=== PATIENT | female | born 1945 | race Two or more races ===

== ENCOUNTER 2017-12-22 07:57 | Outpatient (CLI) | payer OTHER ==
[~2017-12-22 07:57] MED LIST: BONIVA2.5 MG PO; SYNTHROID50 MCG PO
== END 2017-12-22 08:10 | disposition home or self-care (01) ==
LOC: LAB 07:57
DX: E11.9 Type 2 diabetes mellitus without complications (principal); E78.2 Mixed hyperlipidemia; N18.9 Chronic kidney disease, unspecified; E55.9 Vitamin D deficiency, unspecified; E21.0 Primary hyperparathyroidism; E03.8 Other specified hypothyroidism

== ENCOUNTER 2018-07-03 10:15 | Outpatient (CLI) | payer OTHER | END 2018-07-03 10:20 | disposition home or self-care (01) | LOC: LAB 10:15 | DX: E03.8 Other specified hypothyroidism (principal) ==

== ENCOUNTER 2018-07-04 11:09 | Outpatient (CLI) | payer OTHER | END 2018-07-04 11:12 | disposition home or self-care (01) | LOC: MAMO-SONO 11:09 | DX: Z12.31 Encounter for screening mammogram for malignant neoplasm of breast (principal); Z87.898 Personal history of other specified conditions; N64.89 Other specified disorders of breast ==

== ENCOUNTER 2019-01-09 09:06 | Outpatient (CLI) | payer OTHER | END 2019-01-09 09:14 | disposition home or self-care (01) | LOC: LAB 09:06 | DX: K62.5 Hemorrhage of anus and rectum (principal); E78.2 Mixed hyperlipidemia; E11.9 Type 2 diabetes mellitus without complications; E55.9 Vitamin D deficiency, unspecified; E03.8 Other specified hypothyroidism; N18.9 Chronic kidney disease, unspecified ==

== ENCOUNTER → 2019-01-09 | Outpatient (CLI) | payer OTHER | END | disposition home or self-care (01) | LOC: SONOGRAMA 14:13 → MAMO-SONO 14:15 | DX: E03.8 Other specified hypothyroidism (principal); E04.2 Nontoxic multinodular goiter ==

== ENCOUNTER 2019-02-08 10:54 | Emergency (ER) | payer OTHER ==
[~2019-02-08] VITALS: Ht 170.2 cm; Wt 68.0 kg
== END 2019-02-08 18:32 | disposition home or self-care (01) ==
LOC: ER 10:54
DX: K52.89 Other specified noninfective gastroenteritis and colitis (principal); K59.09 Other constipation

== ENCOUNTER 2019-02-11 09:30 | Emergency (ER) | payer OTHER ==
[~2019-02-11] VITALS: Ht 170.2 cm; Wt 65.8 kg
== END 2019-02-11 14:09 | disposition home or self-care (01) ==
LOC: ER 09:30
DX: K52.89 Other specified noninfective gastroenteritis and colitis (principal)

== ENCOUNTER 2019-09-22 13:06 | Outpatient (CLI) | payer OTHER | END 2019-09-22 13:13 | disposition home or self-care (01) | LOC: RAD 13:06 | DX: R05 Cough (principal) ==

== ENCOUNTER 2021-02-12 10:36 | Outpatient (CLI) | payer OTHER | END 2021-02-12 10:56 | disposition home or self-care (01) | LOC: MAMO-SONO 10:36 | PROVIDERS: ATTEND Obstetrics & Gynecology Obstetrics | DX: N64.4 Mastodynia (principal); Z12.31 Encounter for screening mammogram for malignant neoplasm of breast ==

== ENCOUNTER 2022-09-11 10:54 | Emergency (ER) | payer OTHER ==
[~2022-09-11] VITALS: Ht 170.2 cm; Wt 65.8 kg
[2022-09-11] MEDS ORDERED: MAGNESIUM OXID250 MG PO (10:59)
== END 2022-09-11 15:11 ==
LOC: ER 10:54
DX: U07.1 COVID-19 (principal); E06.3 Autoimmune thyroiditis; K58.9 Irritable bowel syndrome, unspecified; Z88.0 Allergy status to penicillin; Z88.6 Allergy status to analgesic agent

== ENCOUNTER 2022-10-27 08:55 | Outpatient (CLI) | payer OTHER ==
[~2022-10-27 08:55] MED LIST changes: +MAGNESIUM OXID250 MG PO
== END 2022-10-27 09:04 | disposition home or self-care (01) ==
LOC: MAMO-SONO 08:55
PROVIDERS: ATTEND Obstetrics & Gynecology Obstetrics
DX: N64.4 Mastodynia (principal)

== ENCOUNTER → 2022-11-15 | Outpatient (CLI) | payer OTHER | END | disposition home or self-care (01) | LOC: NUCLEAR 11-05 13:15 | PROVIDERS: ATTEND Obstetrics & Gynecology Obstetrics | DX: M81.0 Age-related osteoporosis without current pathological fracture (principal); M85.9 Disorder of bone density and structure, unspecified ==

== ENCOUNTER 2022-12-16 | Outpatient (CLI) | payer OTHER ==
[2023-01-20] MEDS ORDERED: MESALAMINE800 MG (16:08)
== END 2022-12-16 00:15 | disposition home or self-care (01) ==
LOC: PPH VACUNA
PROVIDERS: ATTEND Emergency Medicine Pediatric Emergency Medicine
DX: Z23 Encounter for immunization (principal)

== ENCOUNTER → 2023-01-20 | Emergency (ER) | payer OTHER ==
[~2023-01-20] VITALS: Ht 170.2 cm; Wt 63.5 kg
[~2023-01-20] MED LIST changes: +MESALAMINE800 MG
== END | disposition home or self-care (01) ==
LOC: ER 15:54
DX: T23.022A Burn of unspecified degree of single left finger (nail) except thumb, initial encounter (principal); X19.XXXA Contact with other heat and hot substances, initial encounter; Y93.89 Activity, other specified; Y92.010 Kitchen of single-family (private) house as the place of occurrence of the external cause; Z88.2 Allergy status to sulfonamides; Z88.0 Allergy status to penicillin

== ENCOUNTER 2023-08-30 10:56 | Outpatient (CLI) | payer OTHER | END 2023-08-30 11:01 | disposition home or self-care (01) | LOC: RAD 10:56 | DX: J44.9 Chronic obstructive pulmonary disease, unspecified (principal) ==

== ENCOUNTER 2023-09-19 11:19 | Outpatient (CLI) | payer OTHER | END 2023-09-19 11:22 | disposition home or self-care (01) | LOC: SONOGRAMA 11:19 | PROVIDERS: ATTEND Family Medicine Adult Medicine | DX: N60.21 Fibroadenosis of right breast (principal); N60.22 Fibroadenosis of left breast ==

== ENCOUNTER 2024-03-06 12:05 | Outpatient (CLI) | payer OTHER | END 2024-03-06 12:14 | disposition home or self-care (01) | LOC: RAD 12:05 | PROVIDERS: ATTEND Family Medicine Geriatric Medicine | DX: R05.3 Chronic cough (principal); R09.89 Other specified symptoms and signs involving the circulatory and respiratory systems ==

== ENCOUNTER 2024-05-02 10:39 | Outpatient (CLI) | payer OTHER | END 2024-05-02 10:47 | disposition home or self-care (01) | LOC: SONOGRAMA 10:39 | PROVIDERS: ATTEND Internal Medicine | DX: N18.30 Chronic kidney disease, stage 3 unspecified (principal) ==